=== PATIENT | male | born 1950 | race Caucasian/White ===

== ENCOUNTER 2021-12-26 18:11 | Emergency (ER) | payer MEDICARE, MEDICAID, SELFPAY ==
--- NOTE | ~2021-12-26 | XR_ITS ---
EXAMINATION: PORTABLE CHEST 1 VIEW CLINICAL INFORMATION: choking r/o aspiration . COMPARISON: 06/24/2013. TECHNIQUE: Portable frontal view of the chest was obtained. FINDINGS: The lungs are hypoexpanded and the patient is rotated to the right. No focal infiltrate, effusion, edema, or pneumothorax. Cardiac and mediastinal silhouettes are within normal limits for technique. No acute bony abnormality seen. XR/XR chest 1V IMPRESSION: Hypoexpanded and rotated to the right. No focal airspace disease seen otherwise.
--- NOTE | 2021-12-26 18:29 | ECG_ITS ---
Test Reason : DIFFICULTY BREATHING Blood Pressure : / mmHG Vent. Rate : 092 BPM Atrial Rate : 092 BPM P-R Int : 144 ms QRS Dur : 106 ms QT Int : 376 ms P-R-T Axes : 014 -33 017 degrees QTc Int : 464 ms Normal sinus rhythm with sinus arrhythmia Left axis deviation Incomplete right bundle branch block Minimal voltage criteria for LVH, may be normal variant ( R in aVL ) Abnormal ECG When compared with ECG of 31-OCT-2013 11:17, No significant change was found Referred By: Ahsan Mcallister Electronically Signed By:NESSA LUGO
[2021-12-26 18:38] VITALS: BP 111/73; BP 118/40; PULSE 89; RESP 16; TEMP 36.5; O2SAT 94; BMI 28.1
--- NOTE | 2021-12-26 19:13 | ED.GENADULT ---
HPI - General Adult General Chief complaint: General Medical Stated complaint: CHOKED @ DINNER PER SNF,BLS TRANSPORT PER EMS Time Seen by Provider: 12/26/21 18:29 Source: EMS and RN notes reviewed Mode of arrival: EMS Limitations: altered mental status History of Present Illness HPI narrative: History of dementia severe right-sided hemiparesis brought by EMS after choking while having dinner pulse ox was 94% on room air per EMS pulse ox was 94% at room air no other distress no chest pain palpitation patient is in no distress when he arrived in the ER. According to RN at rehab patient was having mechanical soft diet finish all of it in the end of the food he choked and was cyanotic had hard time clearing his throat coughed up 2- 3 times and food particles came out Related Data Allergies Allergy/AdvReac Type Severity Reaction Status Date / Time No Known Allergies Allergy Unverified 04/08/20 16:29 [No Known Allergies*] Review of Systems Review of Systems: Yes Unobtainable due to mental status Physical Exam ED Vital Signs: Vital Signs - 24 hr 12/26/21 18:38 12/26/21 19:17 Temperature 97.7 F 98.4 F Pulse Rate 89 88 Respiratory Rate 16 20 Blood Pressure 118/40 L 103/51 L Pulse Oximetry 94 95 BMI result Body Mass Index 28.1 Appearance: Alert. Oriented X1-2. No acute distress. Eyes: PERRLA, No Nystagmus ENT: Pharynx normal. Oral Mucosa moist Neck: Normal inspection. Neck supple. No stridor CVS: Normal heart rate and rhythm. Pulses normal. Respiratory: No respiratory distress. Equal air entry bilateral, no wheezing/rales/rhonchi Abdomen: Soft and nontender. Bowel sounds are present, no mass palpable, no CVA tenderness Skin: Skin warm and dry. Normal skin color. Normal skin turgor. Extremities: No lower extremity edema. No calf tenderness Neuro: Oriented X 1-2. Right hemiparesis Medical Decision Making MDM Narrative Medical decision making narrative: Chest x-ray without any infiltrate EKG without any arrhythmias discharge patient back to rehab case discussed with nurse at rehab patient is saturating 95% on room air ECG Data Attestation: I personally reviewed and interpreted this ECG as follows: Interpretation: Normal sinus rhythm heart rate 92 beats per minute left axis deviation LVH no acute ST-T changes no acute ischemia Discharge Plan Discharge Clinical Impression: Choking due to food in larynx Patient Disposition: Xfer SNF Instructions: Aspiration Precautions (ED) Additional Instructions: Aspiration precautions as advised
[2021-12-26 19:17] VITALS: BP 103/51; PULSE 88; RESP 20; TEMP 36.9; O2SAT 95
--- NOTE | 2021-12-26 19:19 | PC.NURSE ---
Addendum entered by Gillian Gonzalez 12/26/21 20:37: Report given to JANES Medrano from [facility] Original Note: report received from JANES Huffman. pt alert and oriented x2. resting comfortably in bed, no signs of acute distress notice. breathing equally unlabored
== END 2021-12-26 21:12 | disposition skilled nursing facility (03) ==
PROVIDERS: Emergency Provider Internal Medicine; PCP Family Medicine
DX: T17.328A Food in larynx causing other injury, initial encounter (principal); X58.XXXA Exposure to other specified factors, initial encounter; Y93.89 Activity, other specified; Y92.128 Other place in nursing home as the place of occurrence of the external cause; Y99.9 Unspecified external cause status
CPT/HCPCS: 71045; 93005; 99283; 99284

== ENCOUNTER 2022-02-13 13:37 | Outpatient (REF) | payer MEDICARE, MEDICAID, SELFPAY ==
--- NOTE | ~2022-02-13 | CT_ITS ---
EXAMINATION: CT ABDOMEN AND PELVIS WITH CONTRAST CLINICAL INFORMATION: Colon cancer. COMPARISON: 06/24/2013. TECHNIQUE: Multidetector volumetric images were obtained from the superior aspect of the liver through the pubic symphysis following administration 85 mL of Omnipaque 350 intravenous contrast. Sagittal and coronal reformatted images were obtained on the technologist's workstation. Oral contrast: No This CT examination was performed using dose optimization techniques as appropriate, variously including the following: *Automated exposure control *Adjustment of mA and/or kV according to patient size (this includes techniques or standardized protocols for targeted exams where dose is matched to indication/reason for exam; i.e. extremities or head) *Use of iterative reconstruction technique DLP: 1598 mGy-cm FINDINGS: There is motion artifact present degrading evaluation of the lower lungs and upper abdomen. LUNG BASES: There is some atelectasis or scarring noted in both lung bases. No pleural or pericardial effusion. Coronary artery calcifications are present. No pericolonic inflammatory change is identified. LIVER, GALLBLADDER, AND BILIARY TREE: No intrahepatic bile duct dilatation is seen. There is a 1 cm low-density lesion about the dome of the liver likely representing a small cyst. No definite abnormal solid mass is appreciated. Status post cholecystectomy. PANCREAS: Unremarkable. SPLEEN: Unremarkable. ADRENAL GLANDS: Unremarkable. KIDNEYS AND URETERS: There are bilateral renal cysts present. No definite abnormal solid mass is appreciated. No hydronephrosis or hydroureter. BLADDER: Unremarkable. GASTROINTESTINAL TRACT: No dilated loops of large or small bowel are evident. No free air or free fluid is seen. A colostomy is present with parastomal hernia containing loops of small bowel within the left lower quadrant. Post-surgical change is seen near the region of the rectosigmoid colon. There is diastasis of the rectus muscles. ABDOMINAL WALL: Colostomy with parastomal hernia containing loops of small bowel. Diastasis of the rectus musculature with loops of large and small bowel. LYMPH NODES: There are multiple non-pathologically enlarged pelvic lymph nodes identified. VASCULAR: Inferior vena cava filter is seen in place. Mild aortoiliac calcified plaque. PELVIC VISCERA: Prostate calcifications are present. OSSEOUS STRUCTURES: Status post right total hip arthroplasty with artifact about the pelvis. No suspicious destructive bony lesions are identified. There is scoliosis of the lumbar spine convex left with multilevel degenerative disc disease being present. CT/CT abdomen pelvis w con IMPRESSION: Status post colostomy with parastomal hernia containing loops of small bowel. Diastasis of the rectus musculature containing loops of large and small bowel. No definite suspicious hepatic lesions appreciated. Bilateral renal cysts and probable hepatic cyst. Fleischner guidelines were followed.
[2022-02-13 15:09] LABS: Blood Urea Nitrogen 15 mg/dL (9-16); Estimated Glomerular Filt Rate > 60
[2022-02-13] MEDS: iohexoL 350 MG/ML 100 ML INFUS..BTL IV (19:23)
[2022-02-13] MEDS: Barium Sulfate Oral (Mocha) 450 ML ORAL.SUSP 900 ML PO (19:23)
== END 2022-02-13 13:38 | disposition home or self-care (01) ==
LOC: HO.LAB 13:37
PROVIDERS: PCP Family Medicine; Visit Provider Surgery
DX: Z85.038 Personal history of other malignant neoplasm of large intestine (principal); Z93.3 Colostomy status
CPT/HCPCS: 36415; 74177; 82565; 84520; 99202; Q9967

== ENCOUNTER 2023-05-29 10:05 | Outpatient (REF) | payer MEDICARE, MEDICAID, SELFPAY ==
[2023-05-29 11:52] LABS: Hematocrit 34.8 % (42.0-52.0); Hemoglobin 9.5 g/dl (14.0-18.0); Mean Corpuscular HGB Conc 27.3 g/dl (31.0-36.0); Mean Corpuscular Volume 73.4 fL (80.0-98.0); Mean Platelet Volume 10.3 fL (9.4-12.4); Platelet Count 246 X10*3/uL (160-400); Red Blood Count 4.74 X10*6/uL (4.60-5.80); White Blood Count 5.4 X10*3/uL (4.8-10.8)
[2023-05-29 12:27] LABS: Anion Gap 10 (12-20); Blood Urea Nitrogen 11 mg/dL (9-16); Carbon Dioxide 29 mmol/L (22-29); Chloride 104 mmol/L (96-108); Estimated Glomerular Filt Rate > 60; Glucose Random 97 mg/dL (60-115); Iron 28 mcg/dL (45-160); Percent Iron Saturation 11 % (15-50); Potassium 3.4 mmol/L (3.3-5.1); Sodium 140 mmol/L (135-145); Total Iron Binding Capacity 259 mcg/dL (228-428); Unsaturated Iron Binding 231 ug/dL
[2023-05-29 12:50] LABS: Ferritin 69 ng/mL (20-250)
== END 2023-05-29 10:06 | disposition home or self-care (01) ==
LOC: HO.LAB 10:05
PROVIDERS: PCP Family Medicine; Visit Provider Internal Medicine
DX: D64.9 Anemia, unspecified (principal); Z79.01 Long term (current) use of anticoagulants; Z85.038 Personal history of other malignant neoplasm of large intestine; Z93.3 Colostomy status
CPT/HCPCS: 36415; 80048; 82728; 83540; 85027; 86900; 86901; 99202

== ENCOUNTER 2023-05-29 10:05 | Outpatient (AMB) | payer MEDICARE, MEDICAID, SELFPAY ==
--- NOTE | 2023-05-29 10:11 | A.OFFVIS_ITS ---
Intake Vital Signs 05/29/23 10:20 BP 114/60 Blood Pressure Location Lt brachial Position Sitting Pulse 87 Intake Visit Reasons: Blood in stool and low H&H Intake Note: Jose presents in the office as a new patient for melena and low H&H. 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 He comes in a stretcher with EMT but no staff member from [facility]. Limited paperwork was sent with him. I do not have any details re frequency and amount of bleeding. There are also no labs in his paperwork to delineate the extent of anemia. Of note - appears to be on Xarelto - unknown indication. From chart review, appears pt had similar issue last year as well and at that time, decision was made to hold off the colonoscopy given his overall clinical condition. CT Abd/pel at that time did not have any evidence of recurrence disease. Call was also placed to [facility] and spoke to Evie his RN. Limited info could be obtained over the phone. Apparently there was some note made of blood in ostomy appliance around 05/04 which generated this referral. RN is not aware of the labs with low H/H or the indication for Xarelto. Per her report, its on hold however. [facility] Medical History (Updated 05/29/23 @ 16:06 by Michelle Mei MD) Morbid obesity Colostomy in place History of CVA (cerebrovascular accident) History of colon cancer Review of Systems Const Unobtainable due to mental condition Physical Exam Vital Signs: Last Vital Signs Pulse 87 05/29/23 10:20 BP 114/60 05/29/23 10:20 Gen appear: Appears younger than stated age HEENT: nonicteric Abd: soft, nontender, LLQ ostomy with green/brown liquid stool without any overt blood Ext: no peripheral edema Neuro: A/Ox2, on the stretcher, answers to some questions Assessment & Plan Assessment & Plan (1) Anemia: Code(s): D64.9 - Anemia, unspecified (2) Colostomy in place: Code(s): Z93.3 - Colostomy status (3) History of colon cancer: Code(s): Z85.038 - Personal history of other malignant neoplasm of large intestine (4) Chronic anticoagulation: Code(s): Z79.01 - buttermaker continuous churn (current) use of anticoagulants Plan Limited clinical information was available at today's visit. Call was placed to sister as well as [facility] RN as above. Reviewed extensively with the sister/HCP that due to his personal hx of CRC >10 years ago, he is much overdue for a surveillance colo, and now diagnostic colo if hes having recurrent bleeding. Will get CBC with iron studies to determine extent of anemia as well as CT abd/pel with IV contrast If anemic, and no obv disease noted on imaging, will strongly recommend colo through stoma as well as of rectal stump, along with EGD. Sister Adeline requests a phone call with results of labs and CT once available. In the meantime, we will try to obtain clinicals from [facility] valerie labs to compare the trend of H/H. Fax number was given to Evie MARRERO. Follow up contingent on above Orders: Orders Complete Blood Count no Diff Today D64.9 - Anemia, unspecified Basic Metabolic Panel Today D64.9 - Anemia, unspecified CT abdomen pelvis w IV con Today Z85.038 - Personal history of other malignant neoplasm of large intestine Ferritin Today D64.9 - Anemia, unspecified IRON PROFILE Today D64.9 - Anemia, unspecified ABO RH Type Today D64.9 - Anemia, unspecified Coding Level of Care Code New Pt Level 4 (10241) Diagnoses Anemia D64.[address] Z93.3 History of colon cancer Z85.038 Chronic anticoagulation Z79.01
[2023-05-29 10:20] VITALS: BP 114/60; PULSE 87
== END 2023-05-29 11:45 | disposition home or self-care (01) ==
PROVIDERS: PCP Family Medicine; Visit Provider Internal Medicine
DX: D64.9 Anemia, unspecified (principal); Z93.3 Colostomy status; Z85.038 Personal history of other malignant neoplasm of large intestine; Z79.01 Long term (current) use of anticoagulants
CPT/HCPCS: 99204

== ENCOUNTER 2023-08-16 06:15 | Outpatient (REF) | payer MEDICARE, MEDICAID, SELFPAY ==
--- NOTE | ~2023-08-16 | CT_ITS ---
EXAMINATION: CT ABDOMEN AND PELVIS WITH CONTRAST CLINICAL INFORMATION: History of colon cancer. COMPARISON: 02/13/2022 TECHNIQUE: Multidetector volumetric images were obtained from the superior aspect of the liver through the pubic symphysis following administration 85 mL of Omnipaque 350 intravenous contrast. Sagittal and coronal reformatted images were obtained on the technologist's workstation. Oral contrast: No This CT examination was performed using dose optimization techniques as appropriate, variously including the following: *Automated exposure control *Adjustment of mA and/or kV according to patient size (this includes techniques or standardized protocols for targeted exams where dose is matched to indication/reason for exam; i.e. extremities or head) *Use of iterative reconstruction technique DLP: 842 mGy-cm FINDINGS: LUNG BASES: No pleural or pericardial effusion. LIVER, GALLBLADDER, AND BILIARY TREE: The liver is normal in size, shape, and attenuation. Numerous hypoattenuating ill-defined masses throughout the liver most likely representing metastatic disease. The largest lesion in the left hepatic lobe measures 4.2 x 3.9 cm. The largest lesion in the right hepatic lobe measures 4.3 x 4.2 cm. Mild intrahepatic biliary ductal dilatation. The gallbladder is nonvisualized however there are 3 unchanged calculi in the gallbladder fossa. PANCREAS: No ductal dilatation. SPLEEN: Not enlarged. ADRENAL GLANDS: No adrenal mass. KIDNEYS AND URETERS: The kidneys are symmetric in size and enhancement. Indeterminate 2.7 x 2.7 cm hypodensity lower pole right kidney. 2.2 x 2.2 cm cyst upper pole left kidney for which no further routine follow-up is needed. Punctate nonobstructing calculus upper pole right kidney. No hydronephrosis. BLADDER: Unremarkable. GASTROINTESTINAL TRACT: Left lower quadrant colostomy with parastomal hernia. There is wall thickening and mild pericolonic inflammatory change of the descending colon. There are few pericolonic lymph nodes in close association. Scattered colonic diverticula. No small bowel obstruction. ABDOMINAL WALL: Diastases recti. LYMPH NODES: No bulky lymphadenopathy. VASCULAR: Normal caliber abdominal aorta. IVC filter is in place. PELVIC VISCERA: Streak artifact from patient's right total hip arthroplasty limits evaluation of the pelvic visceral structures. OSSEOUS STRUCTURES: No destructive bone lesions. CT/CT abdomen pelvis w IV con IMPRESSION: Numerous hypoattenuating ill-defined hepatic masses most likely representing metastatic disease. Wall thickening and mild pericolonic inflammatory change of the descending colon proximal to the colostomy with few pericolonic lymph nodes. PET/CT may be considered. Indeterminate 2.7 x 2.7 cm hypodensity lower pole right kidney. Advise dedicated renal ultrasound. Findings were reviewed and discussed with Dr. Mei at 11:00 AM on 08/20/2023.
[2023-08-16 08:41] LABS: Creatinine POC 0.7 mg/dL (0.5-1.4); GFR POC > 60
[2023-08-16] MEDS: iohexoL 350 MG/ML 100 ML INFUS..BTL IV (08:52)
[2023-08-16] MEDS: Barium Sulfate Oral (Berry) 450 ML ORAL.SUSP PO (08:53)
== END 2023-08-16 06:16 | disposition home or self-care (01) ==
LOC: HO.CT 06:15
PROVIDERS: Visit Provider Internal Medicine
DX: Z85.038 Personal history of other malignant neoplasm of large intestine (principal)
CPT/HCPCS: 74177; 82565; Q9967

== ENCOUNTER → 2023-08-31 11:20 | Outpatient (BNV) | payer MEDICARE, MEDICAID, SELFPAY | PROVIDERS: PCP Family Medicine; Visit Provider Internal Medicine | DX: C78.7 Secondary malignant neoplasm of liver and intrahepatic bile duct (principal) | CPT/HCPCS: 99203 ==